=== PATIENT | male | born 1930 | race Hispanic/Latino ===

== ENCOUNTER → 2019-01-27 | Outpatient (CLI) | payer MEDICARE ==
[~2019-01-27] MED LIST: IOPAMIDOL 370 MG/ML 200 ML INFUS..BTL INJ ONE; SODIUM CHLORIDE 0.9% 100 ML 100 ML ONE
[2019-01-27 11:35] LABS: BLOOD UREA NITROGEN 14 mg/dL (7-26); BUN/CREATININE RATIO 16 (6-25); CREATININE, SERUM 0.89 mg/dL (0.72-1.25); EST GLOMERULAR FILTRATION RATE > 60 ML/MIN (60-)
--- NOTE | 2019-01-29 08:40 | Diagnostic Imaging Report ---
Examination: Cervical CT Angiogram with Contrast Clinical indication:Right internal carotid artery stenosis. Comparison studies:None Technique: Axial images were obtained from the thoracic inlet. Coronal and sagittal images reconstructed from the axial data. Intravenous contrast: 100 cc of Isovue 370 Computer generated maximum intensity projection and 3D images were performed of the bilateral carotid bifurcations and the aortic arch with bilateral common carotid and cervical internal carotid arteries on a separate workstation. Degree of stenosis at the carotid bulbs, if present, will be calculated using NASCET criteria where the smallest diameter at the location of stenosis is compared to the diameter of the more distal non-diseased vessel lumen. Dose modulation, iterative reconstruction, and/or weight based adjustment of the mA/kV was utilized to reduce the radiation dose to as low as reasonably achievable. Findings: Aortic arch and major vessels: There is mixed plaque with soft plaque at the origin of the left subclavian artery which is patent. Common carotid arteries: Nonstenotic calcific plaque at the distal bilateral carotid arteries. Cervical carotid bifurcations: Right: Mixed plaque, but with soft plaque predominance (5.4 mm thick at the posterolateral margin), nonstenotic plaque. Left :Nonstenotic calcific plaque anteromedially. Internal carotid arteries: Right: Severe stenosis (greater than 90% and 5.3 mm long) and complete occlusion (5mm long) of the proximal cervical segment due to soft plaque. There is poststenotic dilatation. And again severe stenosis (greater than 75%) of the mid to distal right cervical internal carotid artery which extends through the intracranial segments (petrous, lacerum, cavernous and clinoid). There is resumption of normal caliber of the intracranial carotid artery at the communicating segment. Left: Patent despite nonstenotic soft plaque at the posterolateral margin of the proximal cervical segment measuring 3.2 mm thickness. Vertebral arteries: Patent with left dominance. Nonstenotic calcific plaque at the origin of the left vertebral artery. Intracranial findings: The ophthalmic artery is visualized and patent. An anterior communicating artery complex is visualized and patent. The right posterior communicating artery is visualized and patent. The left posterior communicating artery is not visualized. There is focal soft tissue causing mild (22%) stenosis of the mid basilar artery for a length of 3.4 mm. IMPRESSION: 1. 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 2. 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 Signed by: Dr. Colleen Monaco M.D. on 01/29/2019 8:36 AM
== END ==
LOC: CT 10:27
PROVIDERS: ATTEND Internal Medicine Cardiovascular Disease
DX: I65.21 Occlusion and stenosis of right carotid artery (principal)
CPT/HCPCS: 36415; 70498; 82565; 84520; Q9967